=== PATIENT | female | born 1965 | race African-American/Black ===

== ENCOUNTER 2018-03-21 09:12 | Inpatient (IN) | payer OTHER ==
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
[2018-03-21 10:35] VITALS: BMI 25.6
[2018-03-21] MEDS ORDERED: MAG HYDROX/AL HYDROX/SIMETH 30 ML UNIT-DOSE CUP PO PRN (13:20)
[2018-03-21] MEDS ORDERED: IBUPROFEN 400 MG TABLET (FP) PO PRN (13:20)
[2018-03-21] MEDS ORDERED: MAGNESIUM CITRATE 300 ML BOTTLE PO PRN (13:20)
[2018-03-21] MEDS ORDERED: P-EPHED 60MG/TRIPROLIDI 2.5MG TABLET PO PRN (13:20)
[2018-03-21] MEDS ORDERED: MAGNESIUM HYDROX 2400MG/30ML ORAL SUSPENSION 30 ML CUP PO PRN (13:20)
[2018-03-21] MEDS ORDERED: guaiFENesin/D-METHORPHAN HB 10 ML UNIT-DOSE CUPS PO PRN (13:20)
[2018-03-21] MEDS ORDERED: chlordiazePOXIDE HCL 25 MG CAPSULE PO PRN (13:20)
[2018-03-21] MEDS ORDERED: MENTHOL/PHENOL 1 EACH UD MM PRN (13:20)
[2018-03-21] MEDS ORDERED: hydrOXYzine PAMOATE 50 MG CAPSULE (FP) PO PRN (13:20)
[2018-03-21] MEDS ORDERED: ACETAMINOPHEN 325 MG TABLET (FP) PO PRN (13:20)
[2018-03-21] MEDS ORDERED: LOPERAMIDE HCL 2 MG CAPSULE PO PRN (13:20)
[2018-03-21] MEDS: NICOTINE 21 MG/24 HOURS TOPICAL PATCH TD SCH (16:22)
[2018-03-21] MEDS: chlordiazePOXIDE HCL 25 MG CAPSULE PO SCH ×2 (17:08→22:31)
[2018-03-21 17:44] LABS: URINE APPEARANCE SLCLOUDY; URINE BILIRUBIN NEGATIVE (<2.0 mg/dL); URINE COLOR LTYELLOW; URINE GLUCOSE (UA) NEGATIVE (NEGATIVE); URINE KETONE NEGATIVE (NEGATIVE); URINE LEUK ESTERASE 3+ (NEGATIVE); URINE NITRITE NEGATIVE (NEGATIVE); URINE PROTEIN NEGATIVE (NEGATIVE); URINE UROBILINOGEN NEGATIVE mg/dL (0.2-1.0)
[2018-03-21 17:52] LABS: EPI CELLS FEW /HPF (FEW); URINE BACTERIA RARE /hpf (NONE SEEN); URINE MUCUS RARE
[2018-03-21] MEDS: BACITRACIN 0.9 GM PACKET TP SCH (22:31)
[2018-03-21] MEDS: THIAMINE HCL 100 MG TABLET (FP) PO SCH (22:31)
[2018-03-22] MEDS: chlordiazePOXIDE HCL 25 MG CAPSULE PO SCH ×4 (06:59→22:13)
[2018-03-22 10:08] LABS: HEMATOCRIT 41.5 % (32.4-45.2); HEMOGLOBIN 14.5 GM/dL (10.7-15.3); MCH 33.2 pg (25.7-33.7); MEAN CELL VOLUME 94.8 fl (80-96); MEAN PLT VOLUME 9.7 fl (7.5-11.1); PLATELET COUNT 212 K/MM3 (134-434); RBC 4.38 M/mm3 (3.60-5.2); RDW 15.4 % (11.6-15.6); WHITE BLOOD COUNT 5.4 K/mm3 (4.0-10.0)
--- NOTE | 2018-03-22 10:14 | PN ---
S CIWA - CIWA Score Nausea/Vomitin-No Nausea/No Vomiting Muscle Tremors: 4-Moderate,w/Arms Extend Anxiety: 3 Agitation: 3 Paroxysmal Sweats: 3 Orientation: 0-Oriented Tacttile Disturbances: 0-None Auditory Disturbances: 0-None Visual Disturbances: 0-None Headache: 0-None Present CIWA-Ar Total Score: 13 S Progress Note (SOAP) Subjective: shakes sweats interrupted sleep body aches chills Objective: 03/22/18 10:13 Vital Signs Temperature 98.1 F 03/22/18 09:41 Pulse Rate 65 03/22/18 09:41 Respiratory Rate 16 03/22/18 09:41 Blood Pressure 167/90 03/22/18 09:41 O2 Sat by Pulse Oximetry (%) Laboratory Tests 03/21/18 03/21/18 03/22/18 10:44 15:23 05:45 WBC 5.4 RBC 4.38 Hgb 14.5 Hct 41.5 D MCV 94.8 MCH 33.2 MCHC 35.0 RDW 15.4 Plt Count 212 MPV 9.7 POC Glucometer 130 Urine Color Ltyellow Urine Appearance Slcloudy Urine pH 6.0 Ur Specific [place] 1.008 L Urine Protein Negative Urine Glucose (UA) Negative Urine Ketones Negative Urine Blood 2+ H Urine Nitrite Negative Urine Bilirubin Negative Urine Urobilinogen Negative Ur Leukocyte Esterase 3+ H Urine WBC (Auto) 4 Urine RBC (Auto) 6 Ur Epithelial Cells Few Urine Bacteria Rare Urine Mucus Rare 03/22/18 08:04 WBC RBC Hgb Hct MCV MCH MCHC RDW Plt Count MPV POC Glucometer 140 Urine Color Urine Appearance Urine pH Ur Specific [place] Urine Protein Urine Glucose (UA) Urine Ketones Urine Blood Urine Nitrite Urine Bilirubin Urine Urobilinogen Ur Leukocyte Esterase Urine WBC (Auto) Urine RBC (Auto) Ur Epithelial Cells Urine Bacteria Urine Mucus aaox3 ambulating no acute distress Assessment: 03/22/18 10:14 withdrawal sx Plan: continue detox increase fluids
--- NOTE | 2018-03-22 10:34 | EKG ---
Test Reason : Blood Pressure : / mmHG Vent. Rate : 059 BPM Atrial Rate : 059 BPM P-R Int : 128 ms QRS Dur : 096 ms QT Int : 446 ms P-R-T Axes : 072 066 055 degrees QTc Int : 441 ms SINUS BRADYCARDIA OTHERWISE NORMAL ECG NO PREVIOUS ECGS AVAILABLE Confirmed by Cameron Arthur MD ([id number]) on 03/22/2018 10:34:15 AM Referred By: Liat Salter Confirmed By:Cameron Arthur MD
[2018-03-22 10:41] LABS: ALBUMIN 3.6 g/dl (3.4-5.0); ALK PHOS 128 U/L (45-117); ANION GAP 14 MMOL/L (8-16); BILIRUBIN,TOTAL 0.7 mg/dL (0.2-1); BLOOD UREA NITROGEN 7 mg/dL (7-18); CALCIUM 8.5 mg/dL (8.5-10.1); CHLORIDE 103 mmol/L (98-107); CO2 23 mmol/L (21-32); CREATININE 0.7 mg/dL (0.55-1.3); GLUCOSE,RANDOM 93 mg/dL (74-106); POTASSIUM 3.3 mmol/L (3.5-5.1); SGOT/AST 33 U/L (15-37); SGPT/ALT 45 U/L (13-61); SODIUM 140 mmol/L (136-145)
[2018-03-22] MEDS: PRENATAL VITAMINS W/ FOLIC ACID TABLET (FP) PO SCH (10:43)
[2018-03-22] MEDS: HYDROCHLOROTHIAZIDE 25 MG TABLET (FP) PO SCH (10:43)
[2018-03-22] MEDS: BACITRACIN 0.9 GM PACKET TP SCH ×2 (10:43→22:13)
[2018-03-22] MEDS: NICOTINE 21 MG/24 HOURS TOPICAL PATCH TD SCH (10:46)
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
[2018-03-22] MEDS: POTASSIUM CHLORIDE TABS 20 MEQ TABLET.ER (FP) PO SCH (12:59)
[2018-03-22] MEDS: EMTRICITABINE/TENOFOV ALAFENAM (DESCOVY) TABLET PO SCH (12:59)
[2018-03-22] MEDS: DOLUTEGRAVIR SODIUM 50 MG TABLET PO SCH (13:00)
[2018-03-22] MEDS ORDERED: SILVER SULFADIAZINE 1% TOP CREAM 50 GM JAR TP ONE (14:53)
[2018-03-22] MEDS: AMOX TR/POT CLAV 500MG/125MG TABLETS (FP) PO SCH (17:47)
[2018-03-22] MEDS ORDERED: SILVER SULFADIAZINE 1% TOP CREAM 400 GM JAR TP SCH (22:00)
[2018-03-22] MEDS: SILVER SULFADIAZINE 1% TOP CREAM 50 GM JAR TP SCH (22:13)
[2018-03-22] MEDS: MELATONIN 5 MG TABLETS PO PRN (22:13)
[2018-03-22] MEDS: THIAMINE HCL 100 MG TABLET (FP) PO SCH (22:13)
[2018-03-23] MEDS: chlordiazePOXIDE HCL 25 MG CAPSULE PO SCH ×2 (06:39→10:18)
[2018-03-23] MEDS: CITALOPRAM HYDROBROMIDE 20 MG TABLET (FP) PO SCH (10:18)
[2018-03-23] MEDS: HYDROCHLOROTHIAZIDE 25 MG TABLET (FP) PO SCH (10:18)
[2018-03-23] MEDS: BACITRACIN 0.9 GM PACKET TP SCH ×2 (10:18→23:02)
[2018-03-23] MEDS: PRENATAL VITAMINS W/ FOLIC ACID TABLET (FP) PO SCH (10:18)
--- NOTE | 2018-03-23 10:18 | PN ---
[facility] CIWA - CIWA Score Nausea/Vomitin-No Nausea/No Vomiting Muscle Tremors: 3 Anxiety: 3 Agitation: 3 Paroxysmal Sweats: 3 Orientation: 0-Oriented Tacttile Disturbances: 0-None Auditory Disturbances: 0-None Visual Disturbances: 0-None Headache: 0-None Present CIWA-Ar Total Score: 12 S Progress Note (SOAP) Subjective: restless sweats mild shakes interrupted sleep Objective: 03/23/18 10:17 Vital Signs Temperature 97.0 F L 03/23/18 09:54 Pulse Rate 62 03/23/18 09:54 Respiratory Rate 16 03/23/18 09:54 Blood Pressure 150/86 03/23/18 09:54 O2 Sat by Pulse Oximetry (%) Laboratory Tests 03/21/18 03/21/18 03/22/18 10:44 15:23 05:45 WBC 5.4 RBC 4.38 Hgb 14.5 Hct 41.5 D MCV 94.8 MCH 33.2 MCHC 35.0 RDW 15.4 Plt Count 212 MPV 9.7 Sodium Potassium Chloride Carbon Dioxide Anion Gap BUN Creatinine Creat Clearance w eGFR POC Glucometer 130 Random Glucose Calcium Total Bilirubin AST ALT Alkaline Phosphatase Total Protein Albumin Urine Color Ltyellow Urine Appearance Slcloudy Urine pH 6.0 Ur Specific [place] 1.008 L Urine Protein Negative Urine Glucose (UA) Negative Urine Ketones Negative Urine Blood 2+ H Urine Nitrite Negative Urine Bilirubin Negative Urine Urobilinogen Negative Ur Leukocyte Esterase 3+ H Urine WBC (Auto) 4 Urine RBC (Auto) 6 Ur Epithelial Cells Few Urine Bacteria Rare Urine Mucus Rare RPR Titer 03/22/18 03/22/18 03/22/18 05:45 05:45 08:04 WBC RBC Hgb Hct MCV MCH MCHC RDW Plt Count MPV Sodium 140 Potassium 3.3 L Chloride 103 Carbon Dioxide 23 Anion Gap 14 BUN 7 Creatinine 0.7 Creat Clearance w eGFR > 60 POC Glucometer 140 Random Glucose 93 Calcium 8.5 Total Bilirubin 0.7 AST 33 ALT 45 Alkaline Phosphatase 128 H Total Protein 7.0 Albumin 3.6 Urine Color Urine Appearance Urine pH Ur Specific [place] Urine Protein Urine Glucose (UA) Urine Ketones Urine Blood Urine Nitrite Urine Bilirubin Urine Urobilinogen Ur Leukocyte Esterase Urine WBC (Auto) Urine RBC (Auto) Ur Epithelial Cells Urine Bacteria Urine Mucus RPR Titer Nonreactive 03/22/18 03/23/18 16:46 06:32 WBC RBC Hgb Hct MCV MCH MCHC RDW Plt Count MPV Sodium Potassium Chloride Carbon Dioxide Anion Gap BUN Creatinine Creat Clearance w eGFR POC Glucometer 123 121 Random Glucose Calcium Total Bilirubin AST ALT Alkaline Phosphatase Total Protein Albumin Urine Color Urine Appearance Urine pH Ur Specific [place] Urine Protein Urine Glucose (UA) Urine Ketones Urine Blood Urine Nitrite Urine Bilirubin Urine Urobilinogen Ur Leukocyte Esterase Urine WBC (Auto) Urine RBC (Auto) Ur Epithelial Cells Urine Bacteria Urine Mucus RPR Titer aaox3 ambulating no acute distress Assessment: 03/23/18 10:17 withdrawal sx Plan: continue detox increase fluids
[2018-03-23] MEDS: EMTRICITABINE/TENOFOV ALAFENAM (DESCOVY) TABLET PO SCH (10:19)
[2018-03-23] MEDS: AMOX TR/POT CLAV 500MG/125MG TABLETS (FP) PO SCH ×2 (10:19→18:02)
[2018-03-23] MEDS: DOLUTEGRAVIR SODIUM 50 MG TABLET PO SCH (10:20)
[2018-03-23] MEDS: POTASSIUM CHLORIDE TABS 20 MEQ TABLET.ER (FP) PO SCH (10:21)
[2018-03-23] MEDS: NICOTINE 21 MG/24 HOURS TOPICAL PATCH TD SCH (10:22)
[2018-03-23] MEDS: SILVER SULFADIAZINE 1% TOP CREAM 50 GM JAR TP SCH ×2 (10:22→23:02)
[2018-03-23] MEDS ORDERED: NICOTINE POLACRILEX 4 MG GUM BUC PRN (10:24)
[2018-03-23] MEDS: chlordiazePOXIDE 5 MG CAPSULE PO SCH ×2 (18:01→22:30)
[2018-03-23] MEDS: MELATONIN 5 MG TABLETS PO PRN (22:31)
[2018-03-23] MEDS: THIAMINE HCL 100 MG TABLET (FP) PO SCH (22:32)
[2018-03-24] MEDS: chlordiazePOXIDE 5 MG CAPSULE PO SCH ×2 (06:47→10:09)
[2018-03-24] MEDS: AMOX TR/POT CLAV 500MG/125MG TABLETS (FP) PO SCH (08:12)
[2018-03-24] MEDS ORDERED: amLODIPine BESYLATE 10 MG TABLET (FP) PO ONE (08:39)
[2018-03-24] MEDS: DOLUTEGRAVIR SODIUM 50 MG TABLET PO SCH (10:08)
[2018-03-24] MEDS: PRENATAL VITAMINS W/ FOLIC ACID TABLET (FP) PO SCH (10:08)
[2018-03-24] MEDS: BACITRACIN 0.9 GM PACKET TP SCH (10:08)
[2018-03-24] MEDS: EMTRICITABINE/TENOFOV ALAFENAM (DESCOVY) TABLET PO SCH (10:08)
[2018-03-24] MEDS: CITALOPRAM HYDROBROMIDE 20 MG TABLET (FP) PO SCH (10:09)
[2018-03-24] MEDS: NICOTINE 21 MG/24 HOURS TOPICAL PATCH TD SCH (10:09)
[2018-03-24] MEDS: HYDROCHLOROTHIAZIDE 25 MG TABLET (FP) PO SCH (10:09)
[2018-03-24] MEDS: SILVER SULFADIAZINE 1% TOP CREAM 50 GM JAR TP SCH (10:09)
[2018-03-24] MEDS: POTASSIUM CHLORIDE TABS 20 MEQ TABLET.ER (FP) PO SCH (10:10)
--- NOTE | 2018-03-24 10:23 | PN ---
[facility] Progress Note (SOAP) Subjective: agitation sweats body aches irritable Objective: 03/24/18 10:23 Vital Signs Temperature 97.9 F 03/24/18 09:34 Pulse Rate 61 03/24/18 09:34 Respiratory Rate 16 03/24/18 09:34 Blood Pressure 172/86 H 03/24/18 09:34 O2 Sat by Pulse Oximetry (%) Laboratory Tests 03/21/18 03/21/18 03/22/18 10:44 15:23 05:45 WBC 5.4 RBC 4.38 Hgb 14.5 Hct 41.5 D MCV 94.8 MCH 33.2 MCHC 35.0 RDW 15.4 Plt Count 212 MPV 9.7 Sodium Potassium Chloride Carbon Dioxide Anion Gap BUN Creatinine Creat Clearance w eGFR POC Glucometer 130 Random Glucose Calcium Total Bilirubin AST ALT Alkaline Phosphatase Total Protein Albumin Urine Color Ltyellow Urine Appearance Slcloudy Urine pH 6.0 Ur Specific [place] 1.008 L Urine Protein Negative Urine Glucose (UA) Negative Urine Ketones Negative Urine Blood 2+ H Urine Nitrite Negative Urine Bilirubin Negative Urine Urobilinogen Negative Ur Leukocyte Esterase 3+ H Urine WBC (Auto) 4 Urine RBC (Auto) 6 Ur Epithelial Cells Few Urine Bacteria Rare Urine Mucus Rare RPR Titer 03/22/18 03/22/18 03/22/18 05:45 05:45 08:04 WBC RBC Hgb Hct MCV MCH MCHC RDW Plt Count MPV Sodium 140 Potassium 3.3 L Chloride 103 Carbon Dioxide 23 Anion Gap 14 BUN 7 Creatinine 0.7 Creat Clearance w eGFR > 60 POC Glucometer 140 Random Glucose 93 Calcium 8.5 Total Bilirubin 0.7 AST 33 ALT 45 Alkaline Phosphatase 128 H Total Protein 7.0 Albumin 3.6 Urine Color Urine Appearance Urine pH Ur Specific [place] Urine Protein Urine Glucose (UA) Urine Ketones Urine Blood Urine Nitrite Urine Bilirubin Urine Urobilinogen Ur Leukocyte Esterase Urine WBC (Auto) Urine RBC (Auto) Ur Epithelial Cells Urine Bacteria Urine Mucus RPR Titer Nonreactive 03/22/18 03/23/18 03/23/18 16:46 06:32 17:07 WBC RBC Hgb Hct MCV MCH MCHC RDW Plt Count MPV Sodium Potassium Chloride Carbon Dioxide Anion Gap BUN Creatinine Creat Clearance w eGFR POC Glucometer 123 121 101 Random Glucose Calcium Total Bilirubin AST ALT Alkaline Phosphatase Total Protein Albumin Urine Color Urine Appearance Urine pH Ur Specific [place] Urine Protein Urine Glucose (UA) Urine Ketones Urine Blood Urine Nitrite Urine Bilirubin Urine Urobilinogen Ur Leukocyte Esterase Urine WBC (Auto) Urine RBC (Auto) Ur Epithelial Cells Urine Bacteria Urine Mucus RPR Titer 03/24/18 06:41 WBC RBC Hgb Hct MCV MCH MCHC RDW Plt Count MPV Sodium Potassium Chloride Carbon Dioxide Anion Gap BUN Creatinine Creat Clearance w eGFR POC Glucometer 107 Random Glucose Calcium Total Bilirubin AST ALT Alkaline Phosphatase Total Protein Albumin Urine Color Urine Appearance Urine pH Ur Specific [place] Urine Protein Urine Glucose (UA) Urine Ketones Urine Blood Urine Nitrite Urine Bilirubin Urine Urobilinogen Ur Leukocyte Esterase Urine WBC (Auto) Urine RBC (Auto) Ur Epithelial Cells Urine Bacteria Urine Mucus RPR Titer aaox3 ambulating no acute distress elevated HTN; norvac 10mg daiy ordered Assessment: 03/24/18 10:25 withdrawal sx Plan: continue detox increase fluids norvasc 10mg ordered.
[2018-03-24 13:46] VITALS: TEMP 98.4
[2018-03-24] MEDS ORDERED: chlordiazePOXIDE HCL 10 MG CAPSULE PO SCH (17:00)
[2018-03-24 18:16] VITALS: BP 146/77; PULSE 65
[2018-03-25] MEDS ORDERED: amLODIPine BESYLATE 10 MG TABLET (FP) PO SCH (10:00)
== END 2018-03-24 18:20 | disposition left against medical advice (07) | DRG 894 ==
LOC: YASAS 09:12 → Y6N 10:55
PROVIDERS: ADMIT Neuromusculoskeletal Medicine & OMM; ATTEND Neuromusculoskeletal Medicine & OMM
PROC: HZ2ZZZZ Detoxification Services for Substance Abuse Treatment (ICD-10-PCS; principal; 2018-03-21)
DX: F10.230 Alcohol dependence with withdrawal, uncomplicated (principal); L97.329 Non-pressure chronic ulcer of left ankle with unspecified severity; F14.10 Cocaine abuse, uncomplicated; F19.24 Other psychoactive substance dependence with psychoactive substance-induced mood disorder; F32.9 Major depressive disorder, single episode, unspecified; Z21 Asymptomatic human immunodeficiency virus [HIV] infection status; R55 Syncope and collapse; I10 Essential (primary) hypertension; E10.9 Type 1 diabetes mellitus without complications; Z79.4 Long term (current) use of insulin; R63.4 Abnormal weight loss; Z68.25 Body mass index [BMI] 25.0-25.9, adult; Z96.652 Presence of left artificial knee joint
CPT/HCPCS: 36415; 80053; 81003; 81015; 82962; 85027; 86593; 93005; 93010

== ENCOUNTER 2020-05-24 09:06 | Inpatient (IN) | payer OTHER ==
[2020-05-24 13:51] VITALS: BMI 24.3
[2020-05-24] MEDS ORDERED: ACETAMINOPHEN 325 MG TABLET (FP) PO PRN ×2 (13:56)
[2020-05-24] MEDS ORDERED: chlordiazePOXIDE HCL 25 MG CAPSULE PO PRN (13:56)
[2020-05-24] MEDS ORDERED: IBUPROFEN 400 MG TABLET (FP) PO PRN (13:56)
[2020-05-24] MEDS ORDERED: METHOCARBAMOL 500 MG TABLET PO PRN (13:56)
[2020-05-24] MEDS ORDERED: MAGNESIUM CITRATE 300 ML BOTTLE PO PRN (13:56)
[2020-05-24] MEDS ORDERED: NICOTINE POLACRILEX 2 MG GUM BUC PRN (13:56)
[2020-05-24] MEDS ORDERED: MENTHOL/PHENOL 1 EACH UD MM PRN (13:56)
[2020-05-24] MEDS ORDERED: ONDANSETRON *ODT* 4 MG TABLET SL PRN (13:56)
[2020-05-24] MEDS ORDERED: MAG HYDROX/AL HYDROX/SIMETH 30 ML UNIT-DOSE CUP PO PRN (13:56)
[2020-05-24] MEDS ORDERED: MAGNESIUM HYDROX 2400MG/30ML ORAL SUSPENSION 30 ML CUP PO PRN (13:56)
[2020-05-24] MEDS: hydrOXYzine PAMOATE 25 MG CAPSULE (FP) PO SCH ×3 (15:48→22:32)
[2020-05-24] MEDS: NICOTINE 14 MG/24 HOURS TOPICAL PATCH TD SCH (15:49)
[2020-05-24] MEDS: INSULIN SLIDING SCALE (NOVOLOG) 1 VIAL SQ SCH ×2 (16:58→22:41)
[2020-05-24 17:17] LABS: HEMATOCRIT 42.5 % (32.4-45.2); HEMOGLOBIN 14.2 GM/dL (10.7-15.3); MCH 31.8 pg (25.7-33.7); MCHC 33.4 g/dl (32.0-36.0); MEAN CELL VOLUME 95.4 fl (80-96); MEAN PLT VOLUME 8.5 fl (7.5-11.1); PLATELET COUNT 255 K/MM3 (134-434); RBC 4.45 M/mm3 (3.60-5.2); RDW 13.7 % (11.6-15.6); WHITE BLOOD COUNT 4.6 K/mm3 (4.0-10.0)
[2020-05-24 17:32] LABS: CALCIUM 9.5 mg/dL (8.5-10.1)
[2020-05-24 17:33] LABS: ALBUMIN 3.9 g/dl (3.4-5.0); BLOOD UREA NITROGEN 5.1 mg/dL (7-18)
[2020-05-24] MEDS: chlordiazePOXIDE HCL 25 MG CAPSULE PO SCH ×2 (17:33→22:33)
[2020-05-24 17:36] LABS: CREATININE 0.8 mg/dL (0.55-1.3)
[2020-05-24 17:37] LABS: BILIRUBIN,TOTAL 0.8 mg/dL (0.2-1); TOT PROT 7.2 g/dl (6.4-8.2)
[2020-05-24] MEDS: THIAMINE HCL 100 MG TABLET (FP) PO SCH (22:32)
[2020-05-24] MEDS: MELATONIN 5 MG TABLETS PO SCH (22:32)
[2020-05-25] MEDS: chlordiazePOXIDE HCL 25 MG CAPSULE PO SCH ×4 (06:04→22:17)
[2020-05-25] MEDS: hydrOXYzine PAMOATE 25 MG CAPSULE (FP) PO SCH ×5 (06:04→22:16)
[2020-05-25] MEDS ORDERED: INSULIN SLIDING SCALE (NOVOLOG) 1 VIAL SQ ONE (06:16)
[2020-05-25] MEDS: INSULIN SLIDING SCALE (NOVOLOG) 1 VIAL SQ SCH ×4 (07:49→22:16)
[2020-05-25] MEDS: NICOTINE 14 MG/24 HOURS TOPICAL PATCH TD SCH (10:24)
[2020-05-25] MEDS: PRENATAL VITAMINS W/ FOLIC ACID TABLET (FP) PO SCH (10:25)
[2020-05-25] MEDS: BISMUTH SUBSALICYLATE 262 MG/15 ML BTL PO PRN (17:34)
[2020-05-25] MEDS ORDERED: cloNIDine HCL 0.1 MG TABLET PO ONE (20:55)
[2020-05-25] MEDS: MELATONIN 5 MG TABLETS PO SCH (22:16)
[2020-05-25] MEDS: THIAMINE HCL 100 MG TABLET (FP) PO SCH (22:16)
[2020-05-26] MEDS: hydrOXYzine PAMOATE 25 MG CAPSULE (FP) PO SCH ×5 (07:22→22:17)
[2020-05-26] MEDS: chlordiazePOXIDE HCL 25 MG CAPSULE PO SCH ×4 (07:22→22:16)
[2020-05-26] MEDS: INSULIN SLIDING SCALE (NOVOLOG) 1 VIAL SQ SCH ×4 (07:22→22:17)
[2020-05-26] MEDS ORDERED: P-EPHED 60MG/TRIPROLIDI 2.5MG TABLET PO PRN (09:40)
[2020-05-26] MEDS: PRENATAL VITAMINS W/ FOLIC ACID TABLET (FP) PO SCH (10:51)
[2020-05-26] MEDS ORDERED: CITALOPRAM HYDROBROMIDE 20 MG TABLET PO SCH (11:15)
[2020-05-26] MEDS: NICOTINE 14 MG/24 HOURS TOPICAL PATCH TD SCH (11:38)
[2020-05-26] MEDS ORDERED: SODIUM CHLORIDE NASAL SPRAY 44 ML BOTTLE NS PRN (11:42)
[2020-05-26] MEDS: BICTEGRAV/EMTRICIT/TENOFOV (BIKTARVY) 50-200-25 MG TABLET PO SCH (14:26)
[2020-05-26] MEDS: GABAPENTIN 300 MG CAPSULE PO SCH ×2 (14:26→22:17)
[2020-05-26] MEDS: HYDROCHLOROTHIAZIDE 25 MG TABLET (FP) PO SCH (17:51)
[2020-05-26] MEDS: MELATONIN 5 MG TABLETS PO SCH (22:16)
[2020-05-26] MEDS: QUEtiapine FUMARATE 100 MG TABLET (FP) PO SCH (22:17)
[2020-05-26] MEDS: THIAMINE HCL 100 MG TABLET (FP) PO SCH (22:17)
[2020-05-26] MEDS: LISINOPRIL 20 MG TABLET PO SCH (22:18)
[2020-05-27] MEDS ORDERED: chlordiazePOXIDE HCL 10 MG CAPSULE PO PRN
[2020-05-27] MEDS: chlordiazePOXIDE HCL 10 MG CAPSULE PO SCH ×4 (05:46→22:34)
[2020-05-27] MEDS: hydrOXYzine PAMOATE 25 MG CAPSULE (FP) PO SCH ×5 (05:46→22:34)
[2020-05-27] MEDS: INSULIN SLIDING SCALE (NOVOLOG) 1 VIAL SQ SCH ×4 (06:20→22:39)
[2020-05-27] MEDS: PRENATAL VITAMINS W/ FOLIC ACID TABLET (FP) PO SCH (10:12)
[2020-05-27] MEDS: HYDROCHLOROTHIAZIDE 25 MG TABLET (FP) PO SCH (10:12)
[2020-05-27] MEDS: LISINOPRIL 20 MG TABLET PO SCH ×2 (10:12→22:33)
[2020-05-27] MEDS: GABAPENTIN 300 MG CAPSULE PO SCH ×2 (10:12→22:33)
[2020-05-27] MEDS: CITALOPRAM HYDROBROMIDE 10 MG TABLET PO SCH (10:12)
[2020-05-27] MEDS: NICOTINE 14 MG/24 HOURS TOPICAL PATCH TD SCH (10:13)
[2020-05-27] MEDS: BICTEGRAV/EMTRICIT/TENOFOV (BIKTARVY) 50-200-25 MG TABLET PO SCH (10:48)
[2020-05-27] MEDS: BISMUTH SUBSALICYLATE 262 MG/15 ML BTL PO PRN (13:07)
[2020-05-27] MEDS: metFORMIN HCL 500 MG TABLET (FP) PO SCH (17:40)
[2020-05-27] MEDS ORDERED: PANTOPRAZOLE 20 MG TABLET PO ONE (20:27)
[2020-05-27] MEDS: MELATONIN 5 MG TABLETS PO SCH (22:33)
[2020-05-27] MEDS: QUEtiapine FUMARATE 100 MG TABLET (FP) PO SCH (22:33)
[2020-05-27] MEDS: THIAMINE HCL 100 MG TABLET (FP) PO SCH (22:33)
[2020-05-28] MEDS: chlordiazePOXIDE HCL 10 MG CAPSULE PO SCH ×2 (05:21→17:23)
[2020-05-28] MEDS: hydrOXYzine PAMOATE 25 MG CAPSULE (FP) PO SCH ×2 (05:22→11:37)
[2020-05-28] MEDS: metFORMIN HCL 500 MG TABLET (FP) PO SCH ×2 (06:10→16:50)
[2020-05-28] MEDS: INSULIN SLIDING SCALE (NOVOLOG) 1 VIAL SQ SCH ×4 (06:10→21:22)
[2020-05-28] MEDS: NICOTINE 14 MG/24 HOURS TOPICAL PATCH TD SCH (10:22)
[2020-05-28] MEDS: LISINOPRIL 20 MG TABLET PO SCH ×2 (10:22→21:22)
[2020-05-28] MEDS: PRENATAL VITAMINS W/ FOLIC ACID TABLET (FP) PO SCH (10:22)
[2020-05-28] MEDS: CITALOPRAM HYDROBROMIDE 10 MG TABLET PO SCH (10:22)
[2020-05-28] MEDS: HYDROCHLOROTHIAZIDE 25 MG TABLET (FP) PO SCH (10:22)
[2020-05-28] MEDS: BICTEGRAV/EMTRICIT/TENOFOV (BIKTARVY) 50-200-25 MG TABLET PO SCH (10:22)
[2020-05-28] MEDS: GABAPENTIN 300 MG CAPSULE PO SCH ×2 (10:22→21:21)
[2020-05-28] MEDS ORDERED: hydrOXYzine PAMOATE 25 MG CAPSULE (FP) PO PRN (11:14)
[2020-05-28] MEDS: BISMUTH SUBSALICYLATE 262 MG/15 ML BTL PO PRN (13:23)
[2020-05-28] MEDS ORDERED: INSULIN SLIDING SCALE (NOVOLOG) 1 VIAL SQ ONE (21:18)
[2020-05-28] MEDS: QUEtiapine FUMARATE 100 MG TABLET (FP) PO SCH (21:21)
[2020-05-28] MEDS: MELATONIN 5 MG TABLETS PO SCH (21:22)
[2020-05-28] MEDS: THIAMINE HCL 100 MG TABLET (FP) PO SCH (21:22)
[2020-05-29] MEDS ORDERED: chlordiazePOXIDE HCL 10 MG CAPSULE PO ONE (05:00)
[2020-05-29] MEDS: metFORMIN HCL 500 MG TABLET (FP) PO SCH (07:03)
[2020-05-29] MEDS: INSULIN SLIDING SCALE (NOVOLOG) 1 VIAL SQ SCH ×2 (07:04→11:20)
[2020-05-29 09:27] VITALS: BP 106/68; PULSE 61; TEMP 98.1
[2020-05-29] MEDS: BICTEGRAV/EMTRICIT/TENOFOV (BIKTARVY) 50-200-25 MG TABLET PO SCH (09:34)
[2020-05-29] MEDS: GABAPENTIN 300 MG CAPSULE PO SCH (09:34)
[2020-05-29] MEDS: PRENATAL VITAMINS W/ FOLIC ACID TABLET (FP) PO SCH (09:34)
[2020-05-29] MEDS: LISINOPRIL 20 MG TABLET PO SCH (09:35)
[2020-05-29] MEDS: CITALOPRAM HYDROBROMIDE 10 MG TABLET PO SCH (09:35)
[2020-05-29] MEDS: HYDROCHLOROTHIAZIDE 25 MG TABLET (FP) PO SCH (10:08)
[2020-05-29] MEDS: NICOTINE 14 MG/24 HOURS TOPICAL PATCH TD SCH (10:08)
[2020-05-30] MEDS ORDERED: CITALOPRAM HYDROBROMIDE 20 MG TABLET PO SCH (10:00)
== END 2020-05-29 12:38 | disposition other institution (70) | DRG 897 ==
LOC: YASAS 09:06 → Y3N 14:30
PROVIDERS: ADMIT Allergy & Immunology; ATTEND Allergy & Immunology
PROC: HZ2ZZZZ Detoxification Services for Substance Abuse Treatment (ICD-10-PCS; principal; 2020-05-24)
DX: F10.230 Alcohol dependence with withdrawal, uncomplicated (principal); F14.20 Cocaine dependence, uncomplicated; F19.282 Other psychoactive substance dependence with psychoactive substance-induced sleep disorder; F33.1 Major depressive disorder, recurrent, moderate; F17.210 Nicotine dependence, cigarettes, uncomplicated; F19.24 Other psychoactive substance dependence with psychoactive substance-induced mood disorder; Z21 Asymptomatic human immunodeficiency virus [HIV] infection status; A53.0 Latent syphilis, unspecified as early or late; I10 Essential (primary) hypertension; E10.9 Type 1 diabetes mellitus without complications; Z79.4 Long term (current) use of insulin; R10.13 Epigastric pain; Z96.652 Presence of left artificial knee joint
CPT/HCPCS: 36415; 80053; 81025; 82962; 85027; 86593; 86780; 93005; 93010; C9803; J0735; Q0162; U0003

== ENCOUNTER 2020-05-29 12:36 | Inpatient (IN) | payer OTHER ==
[2020-05-29] MEDS ORDERED: MAGNESIUM CITRATE 300 ML BOTTLE PO PRN (14:29)
[2020-05-29] MEDS ORDERED: LOPERAMIDE HCL 2 MG CAPSULE PO PRN (14:29)
[2020-05-29] MEDS ORDERED: MAGNESIUM HYDROX 2400MG/30ML ORAL SUSPENSION 30 ML CUP PO PRN (14:29)
[2020-05-29] MEDS ORDERED: guaiFENesin 200 MG/10 ML 10 ML UNIT-DOSE CUPS PO PRN (14:29)
[2020-05-29] MEDS ORDERED: MAG HYDROX/AL HYDROX/SIMETH 30 ML UNIT-DOSE CUP PO PRN (14:29)
[2020-05-29] MEDS ORDERED: MENTHOL/PHENOL 1 EACH UD MM PRN (14:29)
[2020-05-29] MEDS ORDERED: P-EPHED 60MG/TRIPROLIDI 2.5MG TABLET PO PRN (14:29)
[2020-05-29] MEDS ORDERED: NICOTINE POLACRILEX 2 MG GUM BUC PRN (14:29)
[2020-05-29] MEDS: metFORMIN HCL 500 MG TABLET (FP) PO SCH (16:44)
[2020-05-29] MEDS: METHOCARBAMOL 500 MG TABLET PO SCH ×2 (17:53→21:27)
[2020-05-29] MEDS: LISINOPRIL 20 MG TABLET PO SCH (21:26)
[2020-05-29] MEDS: GABAPENTIN 300 MG CAPSULE PO SCH (21:26)
[2020-05-29] MEDS: QUEtiapine FUMARATE 100 MG TABLET (FP) PO SCH (21:26)
[2020-05-29] MEDS: MELATONIN 5 MG TABLETS PO SCH (21:27)
[2020-05-29] MEDS: THIAMINE HCL 100 MG TABLET (FP) PO SCH (21:27)
[2020-05-29] MEDS ORDERED: PATIENT'S OWN MEDICATION (NON-FORMULARY) (Metformin Hcl [Metformin Er Osmotic] 500 MG Tab. PO SCH (22:00)
[2020-05-29] MEDS: SODIUM CHLORIDE NASAL SPRAY 44 ML BOTTLE NS PRN (22:58)
[2020-05-30] MEDS: metFORMIN HCL 500 MG TABLET (FP) PO SCH ×2 (06:27→17:17)
[2020-05-30] MEDS: BICTEGRAV/EMTRICIT/TENOFOV (BIKTARVY) 50-200-25 MG TABLET PO SCH (07:06)
[2020-05-30] MEDS: IBUPROFEN 400 MG TABLET (FP) PO PRN (07:57)
[2020-05-30] MEDS: METHOCARBAMOL 500 MG TABLET PO SCH ×4 (10:07→21:21)
[2020-05-30] MEDS: CITALOPRAM HYDROBROMIDE 20 MG TABLET PO SCH (10:07)
[2020-05-30] MEDS: LISINOPRIL 20 MG TABLET PO SCH ×2 (10:07→21:21)
[2020-05-30] MEDS: GABAPENTIN 300 MG CAPSULE PO SCH ×2 (10:07→21:21)
[2020-05-30] MEDS: PRENATAL VITAMINS W/ FOLIC ACID TABLET (FP) PO SCH (10:07)
[2020-05-30] MEDS: SODIUM CHLORIDE NASAL SPRAY 44 ML BOTTLE NS PRN (10:07)
[2020-05-30] MEDS: HYDROCHLOROTHIAZIDE 25 MG TABLET (FP) PO SCH (10:07)
[2020-05-30] MEDS: hydrOXYzine PAMOATE 25 MG CAPSULE (FP) PO PRN (10:08)
[2020-05-30] MEDS: NICOTINE 14 MG/24 HOURS TOPICAL PATCH TD SCH (10:08)
[2020-05-30] MEDS: PANTOPRAZOLE 40 MG TABLET PO SCH (10:09)
[2020-05-30] MEDS: ACETAMINOPHEN 325 MG TABLET (FP) PO PRN (10:10)
[2020-05-30] MEDS: QUEtiapine FUMARATE 100 MG TABLET (FP) PO SCH (21:21)
[2020-05-30] MEDS: THIAMINE HCL 100 MG TABLET (FP) PO SCH (21:21)
[2020-05-30] MEDS: MELATONIN 5 MG TABLETS PO SCH (21:21)
[2020-05-31] MEDS: metFORMIN HCL 500 MG TABLET (FP) PO SCH ×2 (06:18→16:40)
[2020-05-31] MEDS: BICTEGRAV/EMTRICIT/TENOFOV (BIKTARVY) 50-200-25 MG TABLET PO SCH (08:54)
[2020-05-31] MEDS: LISINOPRIL 20 MG TABLET PO SCH ×2 (09:54→21:34)
[2020-05-31] MEDS: PANTOPRAZOLE 40 MG TABLET PO SCH (09:54)
[2020-05-31] MEDS: CITALOPRAM HYDROBROMIDE 20 MG TABLET PO SCH (09:54)
[2020-05-31] MEDS: METHOCARBAMOL 500 MG TABLET PO SCH ×4 (09:54→21:34)
[2020-05-31] MEDS: GABAPENTIN 300 MG CAPSULE PO SCH ×2 (09:54→21:34)
[2020-05-31] MEDS: HYDROCHLOROTHIAZIDE 25 MG TABLET (FP) PO SCH (09:55)
[2020-05-31] MEDS: PRENATAL VITAMINS W/ FOLIC ACID TABLET (FP) PO SCH (09:56)
[2020-05-31] MEDS: NICOTINE 14 MG/24 HOURS TOPICAL PATCH TD SCH (09:56)
[2020-05-31] MEDS: LIDOCAINE 5% TOPICAL PATCH TP SCH (12:03)
[2020-05-31] MEDS ORDERED: MASKS NR ONE (19:25)
[2020-05-31] MEDS: VITAMINS A AND D TOPICAL OINTMENT 60 GM TUBE TP SCH (19:39)
[2020-05-31] MEDS: TETRAHYDROZOLINE HCL EYE DROPS OU PRN (19:40)
[2020-05-31] MEDS: QUEtiapine FUMARATE 100 MG TABLET (FP) PO SCH (21:34)
[2020-05-31] MEDS: THIAMINE HCL 100 MG TABLET (FP) PO SCH (21:34)
[2020-05-31] MEDS: LIDOCAINE PATCH REMOVAL MC SCH (21:35)
[2020-05-31] MEDS: MELATONIN 5 MG TABLETS PO SCH (21:35)
[2020-06-01] MEDS: VITAMINS A AND D TOPICAL OINTMENT 60 GM TUBE TP SCH ×5 (00:50→23:37)
[2020-06-01] MEDS: metFORMIN HCL 500 MG TABLET (FP) PO SCH ×2 (06:43→16:48)
[2020-06-01] MEDS: BICTEGRAV/EMTRICIT/TENOFOV (BIKTARVY) 50-200-25 MG TABLET PO SCH (08:50)
[2020-06-01] MEDS: METHOCARBAMOL 500 MG TABLET PO SCH ×4 (09:49→21:19)
[2020-06-01] MEDS: CITALOPRAM HYDROBROMIDE 20 MG TABLET PO SCH (09:49)
[2020-06-01] MEDS: GABAPENTIN 300 MG CAPSULE PO SCH ×2 (09:49→21:20)
[2020-06-01] MEDS: PRENATAL VITAMINS W/ FOLIC ACID TABLET (FP) PO SCH (09:49)
[2020-06-01] MEDS: HYDROCHLOROTHIAZIDE 25 MG TABLET (FP) PO SCH (09:49)
[2020-06-01] MEDS: hydrOXYzine PAMOATE 25 MG CAPSULE (FP) PO PRN ×2 (09:49→13:58)
[2020-06-01] MEDS: LISINOPRIL 20 MG TABLET PO SCH ×2 (09:49→21:20)
[2020-06-01] MEDS: NICOTINE 14 MG/24 HOURS TOPICAL PATCH TD SCH (09:50)
[2020-06-01] MEDS: LIDOCAINE 5% TOPICAL PATCH TP SCH (09:50)
[2020-06-01] MEDS: PANTOPRAZOLE 40 MG TABLET PO SCH (09:50)
[2020-06-01] MEDS: MELATONIN 5 MG TABLETS PO SCH (21:20)
[2020-06-01] MEDS: THIAMINE HCL 100 MG TABLET (FP) PO SCH (21:20)
[2020-06-01] MEDS: QUEtiapine FUMARATE 100 MG TABLET (FP) PO SCH (21:20)
[2020-06-01] MEDS: LIDOCAINE PATCH REMOVAL MC SCH (21:21)
[2020-06-02] MEDS: metFORMIN HCL 500 MG TABLET (FP) PO SCH ×2 (06:16→17:07)
[2020-06-02] MEDS: VITAMINS A AND D TOPICAL OINTMENT 60 GM TUBE TP SCH ×3 (07:33→19:12)
[2020-06-02] MEDS: BICTEGRAV/EMTRICIT/TENOFOV (BIKTARVY) 50-200-25 MG TABLET PO SCH (08:45)
[2020-06-02] MEDS: LISINOPRIL 20 MG TABLET PO SCH ×2 (09:45→21:41)
[2020-06-02] MEDS: HYDROCHLOROTHIAZIDE 25 MG TABLET (FP) PO SCH (09:45)
[2020-06-02] MEDS: METHOCARBAMOL 500 MG TABLET PO SCH ×4 (09:45→21:41)
[2020-06-02] MEDS: GABAPENTIN 300 MG CAPSULE PO SCH ×2 (09:45→21:41)
[2020-06-02] MEDS: CITALOPRAM HYDROBROMIDE 20 MG TABLET PO SCH (09:45)
[2020-06-02] MEDS: PANTOPRAZOLE 40 MG TABLET PO SCH (09:45)
[2020-06-02] MEDS: hydrOXYzine PAMOATE 25 MG CAPSULE (FP) PO PRN ×2 (09:45→15:06)
[2020-06-02] MEDS: PRENATAL VITAMINS W/ FOLIC ACID TABLET (FP) PO SCH (09:46)
[2020-06-02] MEDS: NICOTINE 14 MG/24 HOURS TOPICAL PATCH TD SCH (09:46)
[2020-06-02] MEDS: TETRAHYDROZOLINE HCL EYE DROPS OU PRN (09:47)
[2020-06-02] MEDS: LIDOCAINE 5% TOPICAL PATCH TP SCH (10:33)
[2020-06-02] MEDS: MELATONIN 5 MG TABLETS PO SCH (21:40)
[2020-06-02] MEDS: QUEtiapine FUMARATE 100 MG TABLET (FP) PO SCH (21:40)
[2020-06-02] MEDS: THIAMINE HCL 100 MG TABLET (FP) PO SCH (21:40)
[2020-06-02] MEDS: LIDOCAINE PATCH REMOVAL MC SCH (21:41)
[2020-06-03] MEDS: VITAMINS A AND D TOPICAL OINTMENT 60 GM TUBE TP SCH ×4 (00:12→17:27)
[2020-06-03] MEDS: metFORMIN HCL 500 MG TABLET (FP) PO SCH ×2 (06:34→16:52)
[2020-06-03] MEDS: BICTEGRAV/EMTRICIT/TENOFOV (BIKTARVY) 50-200-25 MG TABLET PO SCH (08:50)
[2020-06-03] MEDS: PRENATAL VITAMINS W/ FOLIC ACID TABLET (FP) PO SCH (10:11)
[2020-06-03] MEDS: CITALOPRAM HYDROBROMIDE 20 MG TABLET PO SCH (10:12)
[2020-06-03] MEDS: HYDROCHLOROTHIAZIDE 25 MG TABLET (FP) PO SCH (10:12)
[2020-06-03] MEDS: hydrOXYzine PAMOATE 25 MG CAPSULE (FP) PO PRN ×2 (10:12→14:49)
[2020-06-03] MEDS: LISINOPRIL 20 MG TABLET PO SCH ×2 (10:12→21:15)
[2020-06-03] MEDS: METHOCARBAMOL 500 MG TABLET PO SCH ×4 (10:12→21:15)
[2020-06-03] MEDS: PANTOPRAZOLE 40 MG TABLET PO SCH (10:12)
[2020-06-03] MEDS: GABAPENTIN 300 MG CAPSULE PO SCH ×2 (10:12→21:15)
[2020-06-03] MEDS: NICOTINE 14 MG/24 HOURS TOPICAL PATCH TD SCH (10:13)
[2020-06-03] MEDS: LIDOCAINE 5% TOPICAL PATCH TP SCH (10:13)
[2020-06-03] MEDS: TETRAHYDROZOLINE HCL EYE DROPS OU PRN (16:54)
[2020-06-03] MEDS: QUEtiapine FUMARATE 100 MG TABLET (FP) PO SCH (21:15)
[2020-06-03] MEDS: MELATONIN 5 MG TABLETS PO SCH (21:15)
[2020-06-03] MEDS: THIAMINE HCL 100 MG TABLET (FP) PO SCH (21:15)
[2020-06-03] MEDS: LIDOCAINE PATCH REMOVAL MC SCH (21:16)
[2020-06-04] MEDS: VITAMINS A AND D TOPICAL OINTMENT 60 GM TUBE TP SCH ×5 (00:11→23:51)
[2020-06-04] MEDS: metFORMIN HCL 500 MG TABLET (FP) PO SCH ×2 (06:17→16:40)
[2020-06-04] MEDS: BICTEGRAV/EMTRICIT/TENOFOV (BIKTARVY) 50-200-25 MG TABLET PO SCH (09:14)
[2020-06-04] MEDS: METHOCARBAMOL 500 MG TABLET PO SCH ×4 (10:12→21:25)
[2020-06-04] MEDS: PANTOPRAZOLE 40 MG TABLET PO SCH (10:12)
[2020-06-04] MEDS: SODIUM CHLORIDE NASAL SPRAY 44 ML BOTTLE NS PRN (10:12)
[2020-06-04] MEDS: GABAPENTIN 300 MG CAPSULE PO SCH ×2 (10:12→21:25)
[2020-06-04] MEDS: CITALOPRAM HYDROBROMIDE 20 MG TABLET PO SCH (10:12)
[2020-06-04] MEDS: PRENATAL VITAMINS W/ FOLIC ACID TABLET (FP) PO SCH (10:12)
[2020-06-04] MEDS: HYDROCHLOROTHIAZIDE 25 MG TABLET (FP) PO SCH (10:12)
[2020-06-04] MEDS: LISINOPRIL 20 MG TABLET PO SCH ×2 (10:12→21:25)
[2020-06-04] MEDS: hydrOXYzine PAMOATE 25 MG CAPSULE (FP) PO PRN ×2 (10:12→14:23)
[2020-06-04] MEDS: LIDOCAINE 5% TOPICAL PATCH TP SCH (10:13)
[2020-06-04] MEDS: TETRAHYDROZOLINE HCL EYE DROPS OU PRN (10:14)
[2020-06-04] MEDS: NICOTINE 14 MG/24 HOURS TOPICAL PATCH TD SCH (10:17)
[2020-06-04] MEDS: QUEtiapine FUMARATE 100 MG TABLET (FP) PO SCH (21:25)
[2020-06-04] MEDS: MELATONIN 5 MG TABLETS PO SCH (21:25)
[2020-06-04] MEDS: THIAMINE HCL 100 MG TABLET (FP) PO SCH (21:25)
[2020-06-04] MEDS: LIDOCAINE PATCH REMOVAL MC SCH (21:26)
[2020-06-05] MEDS: VITAMINS A AND D TOPICAL OINTMENT 60 GM TUBE TP SCH ×4 (06:21→23:39)
[2020-06-05] MEDS: metFORMIN HCL 500 MG TABLET (FP) PO SCH ×2 (06:21→16:35)
[2020-06-05] MEDS: TETRAHYDROZOLINE HCL EYE DROPS OU PRN (06:53)
[2020-06-05] MEDS: BICTEGRAV/EMTRICIT/TENOFOV (BIKTARVY) 50-200-25 MG TABLET PO SCH (07:03)
[2020-06-05] MEDS: PRENATAL VITAMINS W/ FOLIC ACID TABLET (FP) PO SCH (10:21)
[2020-06-05] MEDS: PANTOPRAZOLE 40 MG TABLET PO SCH (10:21)
[2020-06-05] MEDS: hydrOXYzine PAMOATE 25 MG CAPSULE (FP) PO PRN (10:21)
[2020-06-05] MEDS: METHOCARBAMOL 500 MG TABLET PO SCH ×4 (10:21→21:12)
[2020-06-05] MEDS: GABAPENTIN 300 MG CAPSULE PO SCH ×2 (10:22→21:12)
[2020-06-05] MEDS: LIDOCAINE 5% TOPICAL PATCH TP SCH (10:22)
[2020-06-05] MEDS: NICOTINE 14 MG/24 HOURS TOPICAL PATCH TD SCH (10:22)
[2020-06-05] MEDS: LISINOPRIL 20 MG TABLET PO SCH ×2 (10:22→21:12)
[2020-06-05] MEDS: CITALOPRAM HYDROBROMIDE 20 MG TABLET PO SCH (10:22)
[2020-06-05] MEDS: HYDROCHLOROTHIAZIDE 25 MG TABLET (FP) PO SCH (10:22)
[2020-06-05] MEDS: QUEtiapine FUMARATE 100 MG TABLET (FP) PO SCH (21:12)
[2020-06-05] MEDS: THIAMINE HCL 100 MG TABLET (FP) PO SCH (21:12)
[2020-06-05] MEDS: MELATONIN 5 MG TABLETS PO SCH (21:13)
[2020-06-05] MEDS: LIDOCAINE PATCH REMOVAL MC SCH (21:13)
[2020-06-05] MEDS: IBUPROFEN 400 MG TABLET (FP) PO PRN (21:34)
[2020-06-06] MEDS: VITAMINS A AND D TOPICAL OINTMENT 60 GM TUBE TP SCH ×3 (06:11→17:09)
[2020-06-06] MEDS: metFORMIN HCL 500 MG TABLET (FP) PO SCH ×2 (06:56→17:08)
[2020-06-06] MEDS: PRENATAL VITAMINS W/ FOLIC ACID TABLET (FP) PO SCH (10:16)
[2020-06-06] MEDS: BICTEGRAV/EMTRICIT/TENOFOV (BIKTARVY) 50-200-25 MG TABLET PO SCH (10:16)
[2020-06-06] MEDS: CITALOPRAM HYDROBROMIDE 20 MG TABLET PO SCH (10:17)
[2020-06-06] MEDS: HYDROCHLOROTHIAZIDE 25 MG TABLET (FP) PO SCH (10:17)
[2020-06-06] MEDS: GABAPENTIN 300 MG CAPSULE PO SCH ×2 (10:17→21:39)
[2020-06-06] MEDS: PANTOPRAZOLE 40 MG TABLET PO SCH (10:17)
[2020-06-06] MEDS: LISINOPRIL 20 MG TABLET PO SCH ×2 (10:17→21:39)
[2020-06-06] MEDS: LIDOCAINE 5% TOPICAL PATCH TP SCH (10:18)
[2020-06-06] MEDS: METHOCARBAMOL 500 MG TABLET PO SCH ×4 (10:18→21:40)
[2020-06-06] MEDS: NICOTINE 14 MG/24 HOURS TOPICAL PATCH TD SCH (10:19)
[2020-06-06] MEDS: TETRAHYDROZOLINE HCL EYE DROPS OU PRN (14:14)
[2020-06-06] MEDS: hydrOXYzine PAMOATE 25 MG CAPSULE (FP) PO PRN (14:14)
[2020-06-06] MEDS: MELATONIN 5 MG TABLETS PO SCH (21:38)
[2020-06-06] MEDS: QUEtiapine FUMARATE 100 MG TABLET (FP) PO SCH (21:39)
[2020-06-06] MEDS: THIAMINE HCL 100 MG TABLET (FP) PO SCH (21:39)
[2020-06-06] MEDS: LIDOCAINE PATCH REMOVAL MC SCH (21:40)
[2020-06-07] MEDS: VITAMINS A AND D TOPICAL OINTMENT 60 GM TUBE TP SCH ×5 (00:19→23:24)
[2020-06-07] MEDS: metFORMIN HCL 500 MG TABLET (FP) PO SCH ×2 (06:24→16:31)
[2020-06-07] MEDS: BICTEGRAV/EMTRICIT/TENOFOV (BIKTARVY) 50-200-25 MG TABLET PO SCH (07:00)
[2020-06-07] MEDS: METHOCARBAMOL 500 MG TABLET PO SCH ×4 (10:09→21:14)
[2020-06-07] MEDS: HYDROCHLOROTHIAZIDE 25 MG TABLET (FP) PO SCH (10:09)
[2020-06-07] MEDS: PRENATAL VITAMINS W/ FOLIC ACID TABLET (FP) PO SCH (10:09)
[2020-06-07] MEDS: LISINOPRIL 20 MG TABLET PO SCH ×2 (10:09→21:14)
[2020-06-07] MEDS: PANTOPRAZOLE 40 MG TABLET PO SCH (10:09)
[2020-06-07] MEDS: GABAPENTIN 300 MG CAPSULE PO SCH ×2 (10:09→21:14)
[2020-06-07] MEDS: CITALOPRAM HYDROBROMIDE 20 MG TABLET PO SCH (10:09)
[2020-06-07] MEDS: LIDOCAINE 5% TOPICAL PATCH TP SCH (10:10)
[2020-06-07] MEDS: TETRAHYDROZOLINE HCL EYE DROPS OU PRN (10:11)
[2020-06-07] MEDS: NICOTINE 14 MG/24 HOURS TOPICAL PATCH TD SCH (10:12)
[2020-06-07] MEDS: hydrOXYzine PAMOATE 25 MG CAPSULE (FP) PO PRN (13:55)
[2020-06-07] MEDS: QUEtiapine FUMARATE 100 MG TABLET (FP) PO SCH (21:13)
[2020-06-07] MEDS: MELATONIN 5 MG TABLETS PO SCH (21:13)
[2020-06-07] MEDS: THIAMINE HCL 100 MG TABLET (FP) PO SCH (21:13)
[2020-06-07] MEDS: LIDOCAINE PATCH REMOVAL MC SCH (21:14)
[2020-06-07] MEDS: ACETAMINOPHEN 325 MG TABLET (FP) PO PRN (21:56)
[2020-06-08] MEDS: VITAMINS A AND D TOPICAL OINTMENT 60 GM TUBE TP SCH ×4 (06:06→23:11)
[2020-06-08] MEDS: metFORMIN HCL 500 MG TABLET (FP) PO SCH ×2 (06:06→16:35)
[2020-06-08] MEDS: BICTEGRAV/EMTRICIT/TENOFOV (BIKTARVY) 50-200-25 MG TABLET PO SCH (07:20)
[2020-06-08] MEDS: LISINOPRIL 20 MG TABLET PO SCH ×2 (10:19→21:17)
[2020-06-08] MEDS: CITALOPRAM HYDROBROMIDE 20 MG TABLET PO SCH (10:19)
[2020-06-08] MEDS: HYDROCHLOROTHIAZIDE 25 MG TABLET (FP) PO SCH (10:19)
[2020-06-08] MEDS: PRENATAL VITAMINS W/ FOLIC ACID TABLET (FP) PO SCH (10:20)
[2020-06-08] MEDS: GABAPENTIN 300 MG CAPSULE PO SCH ×2 (10:20→21:17)
[2020-06-08] MEDS: METHOCARBAMOL 500 MG TABLET PO SCH ×4 (10:20→21:17)
[2020-06-08] MEDS: PANTOPRAZOLE 40 MG TABLET PO SCH (10:20)
[2020-06-08] MEDS: NICOTINE 14 MG/24 HOURS TOPICAL PATCH TD SCH (10:21)
[2020-06-08] MEDS: LIDOCAINE 5% TOPICAL PATCH TP SCH (10:21)
[2020-06-08] MEDS: TETRAHYDROZOLINE HCL EYE DROPS OU PRN (13:59)
[2020-06-08] MEDS: THIAMINE HCL 100 MG TABLET (FP) PO SCH (21:17)
[2020-06-08] MEDS: MELATONIN 5 MG TABLETS PO SCH (21:17)
[2020-06-08] MEDS: QUEtiapine FUMARATE 100 MG TABLET (FP) PO SCH (21:17)
[2020-06-08] MEDS: LIDOCAINE PATCH REMOVAL MC SCH (21:17)
[2020-06-09] MEDS: VITAMINS A AND D TOPICAL OINTMENT 60 GM TUBE TP SCH ×4 (06:19→23:25)
[2020-06-09] MEDS: metFORMIN HCL 500 MG TABLET (FP) PO SCH ×2 (06:19→16:27)
[2020-06-09] MEDS: BICTEGRAV/EMTRICIT/TENOFOV (BIKTARVY) 50-200-25 MG TABLET PO SCH (07:51)
[2020-06-09] MEDS: TETRAHYDROZOLINE HCL EYE DROPS OU PRN (08:42)
[2020-06-09] MEDS: CITALOPRAM HYDROBROMIDE 20 MG TABLET PO SCH (10:13)
[2020-06-09] MEDS: HYDROCHLOROTHIAZIDE 25 MG TABLET (FP) PO SCH (10:13)
[2020-06-09] MEDS: LIDOCAINE 5% TOPICAL PATCH TP SCH (10:14)
[2020-06-09] MEDS: GABAPENTIN 300 MG CAPSULE PO SCH ×2 (10:14→21:13)
[2020-06-09] MEDS: PRENATAL VITAMINS W/ FOLIC ACID TABLET (FP) PO SCH (10:15)
[2020-06-09] MEDS: METHOCARBAMOL 500 MG TABLET PO SCH ×4 (10:15→21:13)
[2020-06-09] MEDS: NICOTINE 14 MG/24 HOURS TOPICAL PATCH TD SCH (10:15)
[2020-06-09] MEDS: LISINOPRIL 20 MG TABLET PO SCH ×2 (10:15→21:13)
[2020-06-09] MEDS: PANTOPRAZOLE 40 MG TABLET PO SCH (10:15)
[2020-06-09] MEDS: QUEtiapine FUMARATE 100 MG TABLET (FP) PO SCH (21:13)
[2020-06-09] MEDS: THIAMINE HCL 100 MG TABLET (FP) PO SCH (21:13)
[2020-06-09] MEDS: LIDOCAINE PATCH REMOVAL MC SCH (21:13)
[2020-06-09] MEDS: MELATONIN 5 MG TABLETS PO SCH (21:13)
[2020-06-10] MEDS: metFORMIN HCL 500 MG TABLET (FP) PO SCH ×2 (06:12→16:55)
[2020-06-10] MEDS: VITAMINS A AND D TOPICAL OINTMENT 60 GM TUBE TP SCH ×3 (06:12→17:25)
[2020-06-10] MEDS: BICTEGRAV/EMTRICIT/TENOFOV (BIKTARVY) 50-200-25 MG TABLET PO SCH (07:30)
[2020-06-10] MEDS: CITALOPRAM HYDROBROMIDE 20 MG TABLET PO SCH (10:21)
[2020-06-10] MEDS: hydrOXYzine PAMOATE 25 MG CAPSULE (FP) PO PRN ×3 (10:21→21:46)
[2020-06-10] MEDS: GABAPENTIN 300 MG CAPSULE PO SCH ×2 (10:21→21:45)
[2020-06-10] MEDS: LISINOPRIL 20 MG TABLET PO SCH ×2 (10:22→21:45)
[2020-06-10] MEDS: PRENATAL VITAMINS W/ FOLIC ACID TABLET (FP) PO SCH (10:22)
[2020-06-10] MEDS: LIDOCAINE 5% TOPICAL PATCH TP SCH ×2 (10:22→16:56)
[2020-06-10] MEDS: PANTOPRAZOLE 40 MG TABLET PO SCH (10:22)
[2020-06-10] MEDS: NICOTINE 14 MG/24 HOURS TOPICAL PATCH TD SCH (10:22)
[2020-06-10] MEDS: HYDROCHLOROTHIAZIDE 25 MG TABLET (FP) PO SCH (10:22)
[2020-06-10] MEDS: METHOCARBAMOL 500 MG TABLET PO SCH ×4 (10:23→21:45)
[2020-06-10] MEDS: TETRAHYDROZOLINE HCL EYE DROPS OU PRN (10:25)
[2020-06-10] MEDS: QUEtiapine FUMARATE 100 MG TABLET (FP) PO SCH (21:45)
[2020-06-10] MEDS: MELATONIN 5 MG TABLETS PO SCH (21:46)
[2020-06-10] MEDS: THIAMINE HCL 100 MG TABLET (FP) PO SCH (21:46)
[2020-06-10] MEDS: LIDOCAINE PATCH REMOVAL MC SCH ×2 (21:47→21:54)
[2020-06-11] MEDS: VITAMINS A AND D TOPICAL OINTMENT 60 GM TUBE TP SCH ×4 (00:30→17:03)
[2020-06-11] MEDS: metFORMIN HCL 500 MG TABLET (FP) PO SCH ×2 (06:16→16:54)
[2020-06-11] MEDS: TETRAHYDROZOLINE HCL EYE DROPS OU PRN ×2 (06:53→10:01)
[2020-06-11] MEDS: BICTEGRAV/EMTRICIT/TENOFOV (BIKTARVY) 50-200-25 MG TABLET PO SCH (07:40)
[2020-06-11] MEDS: LIDOCAINE 5% TOPICAL PATCH TP SCH ×2 (09:58)
[2020-06-11] MEDS: METHOCARBAMOL 500 MG TABLET PO SCH ×4 (09:59→21:12)
[2020-06-11] MEDS: PRENATAL VITAMINS W/ FOLIC ACID TABLET (FP) PO SCH (09:59)
[2020-06-11] MEDS: PANTOPRAZOLE 40 MG TABLET PO SCH (09:59)
[2020-06-11] MEDS: CITALOPRAM HYDROBROMIDE 20 MG TABLET PO SCH (09:59)
[2020-06-11] MEDS: NICOTINE 14 MG/24 HOURS TOPICAL PATCH TD SCH (09:59)
[2020-06-11] MEDS: GABAPENTIN 300 MG CAPSULE PO SCH ×2 (09:59→21:11)
[2020-06-11] MEDS: LISINOPRIL 20 MG TABLET PO SCH ×2 (09:59→21:12)
[2020-06-11] MEDS: hydrOXYzine PAMOATE 25 MG CAPSULE (FP) PO PRN ×2 (09:59→14:19)
[2020-06-11] MEDS: HYDROCHLOROTHIAZIDE 25 MG TABLET (FP) PO SCH (09:59)
[2020-06-11] MEDS: QUEtiapine FUMARATE 100 MG TABLET (FP) PO SCH (21:12)
[2020-06-11] MEDS: THIAMINE HCL 100 MG TABLET (FP) PO SCH (21:12)
[2020-06-11] MEDS: LIDOCAINE PATCH REMOVAL MC SCH ×2 (21:13)
[2020-06-11] MEDS ORDERED: SUVOREXANT 10 MG TABLET PO PRN (22:00)
[2020-06-12] MEDS: VITAMINS A AND D TOPICAL OINTMENT 60 GM TUBE TP SCH ×2 (00:24→06:14)
[2020-06-12] MEDS: metFORMIN HCL 500 MG TABLET (FP) PO SCH (06:14)
[2020-06-12 06:54] VITALS: BP 145/82; PULSE 55; TEMP 97.5
[2020-06-12] MEDS: BICTEGRAV/EMTRICIT/TENOFOV (BIKTARVY) 50-200-25 MG TABLET PO SCH (07:00)
[2020-06-12] MEDS: METHOCARBAMOL 500 MG TABLET PO SCH (09:10)
[2020-06-12] MEDS: HYDROCHLOROTHIAZIDE 25 MG TABLET (FP) PO SCH (09:10)
[2020-06-12] MEDS: LISINOPRIL 20 MG TABLET PO SCH (09:10)
[2020-06-12] MEDS: CITALOPRAM HYDROBROMIDE 20 MG TABLET PO SCH (09:10)
[2020-06-12] MEDS: GABAPENTIN 300 MG CAPSULE PO SCH (09:10)
[2020-06-12] MEDS: PANTOPRAZOLE 40 MG TABLET PO SCH (09:10)
[2020-06-12] MEDS: hydrOXYzine PAMOATE 25 MG CAPSULE (FP) PO PRN (09:10)
[2020-06-12] MEDS: PRENATAL VITAMINS W/ FOLIC ACID TABLET (FP) PO SCH (09:11)
[2020-06-12] MEDS: NICOTINE 14 MG/24 HOURS TOPICAL PATCH TD SCH (09:11)
[2020-06-12] MEDS: LIDOCAINE 5% TOPICAL PATCH TP SCH ×2 (09:11)
[2020-06-12] MEDS ORDERED: PT OWN MED DRAWER 7, Y5N ONE (09:14)
[2020-06-12] MEDS ORDERED: MASKS NR ONE (09:24)
== END 2020-06-12 09:40 | disposition home or self-care (01) | DRG 895 ==
LOC: YASAS 12:36 → Y3W 12:37
PROVIDERS: ADMIT Allergy & Immunology; ATTEND Allergy & Immunology
PROC: HZ42ZZZ Group Counseling for Substance Abuse Treatment, Cognitive-Behavioral (ICD-10-PCS; principal; 2020-05-29)
DX: F10.20 Alcohol dependence, uncomplicated (principal); F14.20 Cocaine dependence, uncomplicated; F19.282 Other psychoactive substance dependence with psychoactive substance-induced sleep disorder; F33.1 Major depressive disorder, recurrent, moderate; F17.220 Nicotine dependence, chewing tobacco, uncomplicated; Z21 Asymptomatic human immunodeficiency virus [HIV] infection status; I10 Essential (primary) hypertension; E78.5 Hyperlipidemia, unspecified; E11.9 Type 2 diabetes mellitus without complications; Z79.84 Long term (current) use of oral hypoglycemic drugs; M54.5 Low back pain; Z87.81 Personal history of (healed) traumatic fracture; Z98.890 Other specified postprocedural states; Z96.652 Presence of left artificial knee joint; Z56.0 Unemployment, unspecified
CPT/HCPCS: 82962; C9803; U0003

== ENCOUNTER 2021-04-11 17:06 | Inpatient (IN) | payer OTHER ==
[2021-04-11 18:28] VITALS: BMI 24.3
[2021-04-11] MEDS ORDERED: P-EPHED 60MG/TRIPROLIDI 2.5MG TABLET PO PRN (20:15)
[2021-04-11] MEDS ORDERED: NICOTINE POLACRILEX 2 MG GUM BC PRN (20:15)
[2021-04-11] MEDS ORDERED: ACETAMINOPHEN 325 MG TABLET (FP) PO PRN (20:15)
[2021-04-11] MEDS ORDERED: LOPERAMIDE HCL 2 MG CAPSULE PO PRN (20:15)
[2021-04-11] MEDS ORDERED: guaiFENesin 200 MG/10 ML 10 ML UNIT-DOSE CUPS PO PRN (20:15)
[2021-04-11] MEDS ORDERED: MAGNESIUM CITRATE 300 ML BOTTLE PO PRN (20:15)
[2021-04-11] MEDS ORDERED: MAGNESIUM HYDROX 2400MG/30ML ORAL SUSPENSION 30 ML CUP PO PRN (20:15)
[2021-04-11] MEDS ORDERED: MAG HYDROX/AL HYDROX/SIMETH 30 ML UNIT-DOSE CUP PO PRN (20:15)
[2021-04-12] MEDS: THIAMINE HCL 100 MG TABLET (FP) PO SCH ×2 (00:06→22:08)
[2021-04-12] MEDS: MELATONIN 5 MG TABLETS PO SCH ×2 (00:06→22:09)
[2021-04-12] MEDS: NICOTINE 14 MG/24 HOURS TOPICAL PATCH TD SCH (10:37)
[2021-04-12] MEDS: PRENATAL VITAMINS W/ FOLIC ACID TABLET (FP) PO SCH (10:37)
[2021-04-12] MEDS: IBUPROFEN 400 MG TABLET (FP) PO PRN (11:45)
[2021-04-12 12:16] LABS: ALBUMIN 3.4 g/dl (3.4-5.0); BLOOD UREA NITROGEN 17.8 mg/dL (7-18); CALCIUM 9.4 mg/dL (8.5-10.1)
[2021-04-12 12:19] LABS: CREATININE 0.8 mg/dL (0.55-1.3)
[2021-04-12 12:21] LABS: BILIRUBIN,TOTAL 0.6 mg/dL (0.2-1); TOT PROT 6.8 g/dl (6.4-8.2)
[2021-04-12 12:30] LABS: HEMATOCRIT 43.9 % (32.4-45.2); HEMOGLOBIN 14.9 GM/dL (10.7-15.3); MCH 32.8 pg (25.7-33.7); MCHC 33.8 g/dl (32.0-36.0); MEAN PLT VOLUME 8.6 fl (7.5-11.1); PLATELET COUNT 172 10^3/uL (134-434); RBC 4.53 M/mm3 (3.60-5.2); RDW 14.1 % (11.6-15.6)
[2021-04-12 13:23] LABS: SYPHILIS W/ RPR CONF REACTIVE (NONREACTIVE)
[2021-04-12] MEDS: GABAPENTIN 100 MG CAPSULE PO SCH (22:08)
[2021-04-12] MEDS: QUEtiapine FUMARATE 50 MG TABLET PO SCH (22:08)
[2021-04-12 22:09] LABS: EPI CELLS >36 /uL (0-25.1); HYALINE CASTS 2 /uL (0-3.1); URINE APPEARANCE CLOUDY; URINE BACTERIA 314 /uL (0-1359); URINE BILIRUBIN NEGATIVE (NEGATIVE); URINE COLOR DK YELLOW; URINE GLUCOSE (UA) NEGATIVE (NEGATIVE); URINE KETONE TRACE (NEGATIVE); URINE LEUK ESTERASE TRACE (NEGATIVE); URINE NITRITE NEGATIVE (NEGATIVE); URINE PROTEIN TRACE (NEGATIVE); URINE RBC 49 /uL (0-23.9); URINE WBC 11 /uL (0-25.8)
[2021-04-13] MEDS: GABAPENTIN 100 MG CAPSULE PO SCH ×3 (07:30→21:53)
[2021-04-13] MEDS: NICOTINE 14 MG/24 HOURS TOPICAL PATCH TD SCH (10:26)
[2021-04-13] MEDS: PRENATAL VITAMINS W/ FOLIC ACID TABLET (FP) PO SCH (10:26)
[2021-04-13] MEDS: MELATONIN 5 MG TABLETS PO SCH (21:53)
[2021-04-13] MEDS: QUEtiapine FUMARATE 50 MG TABLET PO SCH (21:53)
[2021-04-13] MEDS: THIAMINE HCL 100 MG TABLET (FP) PO SCH (21:53)
[2021-04-14] MEDS: GABAPENTIN 100 MG CAPSULE PO SCH ×3 (06:49→22:14)
[2021-04-14] MEDS: PRENATAL VITAMINS W/ FOLIC ACID TABLET (FP) PO SCH (09:32)
[2021-04-14] MEDS: NICOTINE 14 MG/24 HOURS TOPICAL PATCH TD SCH (09:32)
[2021-04-14] MEDS ORDERED: PT OWN MED DRAWER 7, Y5N ONE (17:50)
[2021-04-14] MEDS: BICTEGRAV/EMTRICIT/TENOFOV (BIKTARVY) 50-200-25 MG TABLET PO SCH (17:56)
[2021-04-14] MEDS: HYDROCHLOROTHIAZIDE 25 MG TABLET (FP) PO SCH (17:56)
[2021-04-14] MEDS: NITROFURANTOIN MACROCRYSTAL 50 MG CAPSULE (FP) PO SCH ×2 (18:30→23:19)
[2021-04-14] MEDS: MELATONIN 5 MG TABLETS PO SCH (22:13)
[2021-04-14] MEDS: THIAMINE HCL 100 MG TABLET (FP) PO SCH (22:13)
[2021-04-14] MEDS: QUEtiapine FUMARATE 50 MG TABLET PO SCH (22:14)
[2021-04-14] MEDS: LISINOPRIL 20 MG TABLET PO SCH (22:14)
[2021-04-14] MEDS: IBUPROFEN 400 MG TABLET (FP) PO PRN (23:21)
[2021-04-15] MEDS: NITROFURANTOIN MACROCRYSTAL 50 MG CAPSULE (FP) PO SCH ×3 (06:39→18:25)
[2021-04-15] MEDS: GABAPENTIN 100 MG CAPSULE PO SCH ×3 (06:39→22:24)
[2021-04-15] MEDS: PRENATAL VITAMINS W/ FOLIC ACID TABLET (FP) PO SCH (10:30)
[2021-04-15] MEDS: NICOTINE 14 MG/24 HOURS TOPICAL PATCH TD SCH (10:31)
[2021-04-15] MEDS: BICTEGRAV/EMTRICIT/TENOFOV (BIKTARVY) 50-200-25 MG TABLET PO SCH (10:31)
[2021-04-15] MEDS: HYDROCHLOROTHIAZIDE 25 MG TABLET (FP) PO SCH (10:31)
[2021-04-15] MEDS: LISINOPRIL 20 MG TABLET PO SCH ×2 (10:31→22:24)
[2021-04-15] MEDS ORDERED: PT OWN MED DRAWER 7, Y5N ONE (11:25)
[2021-04-15] MEDS: THIAMINE HCL 100 MG TABLET (FP) PO SCH (22:24)
[2021-04-15] MEDS: MELATONIN 5 MG TABLETS PO SCH (22:24)
[2021-04-15] MEDS: QUEtiapine FUMARATE 50 MG TABLET PO SCH (22:24)
[2021-04-16] MEDS: NITROFURANTOIN MACROCRYSTAL 50 MG CAPSULE (FP) PO SCH ×4 (01:06→19:05)
[2021-04-16] MEDS: GABAPENTIN 100 MG CAPSULE PO SCH ×3 (06:50→22:06)
[2021-04-16] MEDS: ARTIFICIAL TEARS (POLYVINYL ALCOHOL) OPTH DROPS OU PRN ×2 (10:44→22:07)
[2021-04-16] MEDS: LISINOPRIL 20 MG TABLET PO SCH ×2 (10:45→22:06)
[2021-04-16] MEDS: NICOTINE 14 MG/24 HOURS TOPICAL PATCH TD SCH (10:45)
[2021-04-16] MEDS: PRENATAL VITAMINS W/ FOLIC ACID TABLET (FP) PO SCH (10:45)
[2021-04-16] MEDS: BICTEGRAV/EMTRICIT/TENOFOV (BIKTARVY) 50-200-25 MG TABLET PO SCH (10:46)
[2021-04-16] MEDS: HYDROCHLOROTHIAZIDE 25 MG TABLET (FP) PO SCH (10:46)
[2021-04-16] MEDS ORDERED: NICOTINE 10 MG CARTRIDGE (INHALER) IH PRN (15:03)
[2021-04-16] MEDS: THIAMINE HCL 100 MG TABLET (FP) PO SCH (22:06)
[2021-04-16] MEDS: MELATONIN 5 MG TABLETS PO SCH (22:06)
[2021-04-16] MEDS: QUEtiapine FUMARATE 50 MG TABLET PO SCH (22:06)
[2021-04-17] MEDS: NITROFURANTOIN MACROCRYSTAL 50 MG CAPSULE (FP) PO SCH ×3 (00:43→12:26)
[2021-04-17] MEDS: GABAPENTIN 100 MG CAPSULE PO SCH ×2 (06:23→13:53)
[2021-04-17 07:36] VITALS: TEMP 96.6
[2021-04-17 09:24] VITALS: BP 138/67; PULSE 42
[2021-04-17] MEDS: NICOTINE 14 MG/24 HOURS TOPICAL PATCH TD SCH (10:51)
[2021-04-17] MEDS: LISINOPRIL 20 MG TABLET PO SCH (10:51)
[2021-04-17] MEDS: PRENATAL VITAMINS W/ FOLIC ACID TABLET (FP) PO SCH (10:51)
[2021-04-17] MEDS: BICTEGRAV/EMTRICIT/TENOFOV (BIKTARVY) 50-200-25 MG TABLET PO SCH (10:51)
[2021-04-17] MEDS: HYDROCHLOROTHIAZIDE 25 MG TABLET (FP) PO SCH (10:51)
[2021-04-17] MEDS ORDERED: PT OWN MED DRAWER 7, Y5N ONE (12:09)
== END 2021-04-17 16:00 | disposition home or self-care (01) | DRG 895 ==
LOC: YASAS 17:06 → Y5N 21:19
PROVIDERS: ADMIT Allergy & Immunology; ATTEND Allergy & Immunology
PROC: HZ42ZZZ Group Counseling for Substance Abuse Treatment, Cognitive-Behavioral (ICD-10-PCS; principal; 2021-04-11)
DX: F10.20 Alcohol dependence, uncomplicated (principal); F14.20 Cocaine dependence, uncomplicated; F17.210 Nicotine dependence, cigarettes, uncomplicated; F19.24 Other psychoactive substance dependence with psychoactive substance-induced mood disorder; F32.9 Major depressive disorder, single episode, unspecified; I10 Essential (primary) hypertension; Z21 Asymptomatic human immunodeficiency virus [HIV] infection status; E11.9 Type 2 diabetes mellitus without complications; G47.00 Insomnia, unspecified; R00.1 Bradycardia, unspecified; E78.5 Hyperlipidemia, unspecified; Z96.652 Presence of left artificial knee joint; Z91.14 Patient's other noncompliance with medication regimen; Z86.19 Personal history of other infectious and parasitic diseases; Z56.0 Unemployment, unspecified
CPT/HCPCS: 36415; 80053; 81003; 81025; 85027; 86593; 86780; 86803; C9803; U0003; U0005